=== PATIENT | male | born 1950 | race Two or more races ===

== ENCOUNTER 2020-05-30 16:26 | Inpatient (IN) | payer MEDICARE, OTHER ==
[~2020-05-30] VITALS: Ht 167.6 cm; Wt 71.7 kg
[2020-05-30] MEDS ORDERED: LORA-259 PO (17:02)
[2020-05-30] MEDS ORDERED: NICO-780 TP (17:02)
[2020-05-30] MEDS ORDERED: MULT-594 PO (17:02)
[2020-05-30] MEDS ORDERED: THIA100T13 PO (17:02)
[2020-05-30] MEDS ORDERED: FOLIC ACID PO (17:02)
[2020-05-30] MEDS ORDERED: QUET50TA PO (17:02)
[2020-05-30] MEDS ORDERED: ONDA4TAB11 PO (17:02)
--- NOTE | 2020-05-30 17:25 | NUR ---
Pt is medically cleared by Dr Paris to be admitted to [facility].
[2020-05-30 18:45] VITALS: BP 94/58
[2020-05-30] MEDS ORDERED: ACETAMINOPHEN 325 MG TABLET PO PRN (19:00)
[2020-05-30] MEDS ORDERED: MAGNESIUM HYDROXIDE 30 ML LIQUID UDC PO PRN (19:00)
[2020-05-30] MEDS ORDERED: MAG HYDROX/AL HYDROX/SIMETH 30 ML LIQUID UDC PO PRN (19:00)
--- NOTE | 2020-05-30 20:00 | NUR ---
Admission Note: 69 y.o. male brought to MHU from ER via wheelchair accompanied by ER staff. Pt admitted on a 5150 for DTS/DTO under the care of Dr Ferguson and Dr Flynn with a dx of Psychosis. According to the 5150, Pts elderly mother called PD reporting her son was in the front yard with a realistic looking black pellet rifle. Pt dropped the rifle and showed the officers his genitals and surrendered after several minutes. Pt demonstrated clear disregard for his safety and the safety of others, wielding guns near police officers. Pts actions could lead to a potentially fatal encounter. Pt was extremely disoriented and could not congruently express himself. Upon face to face evaluation, Pt is A+Ox3, and states he is here "I pulled my pellet gun on the 2 Orientals in my bedroom". Pt has a fixed delusion that there were strange unknown men in his bedroom and further stated, I am in the right, I was protecting myself. Denies wanting to hurt anyone specific, and has no plan. Pt is noted to be manic, hyperverbal, and tangential. Affect is elevated, speech is rapid and pressured. Mood is labile, thought process is scattered. Presents with poor insight and impaired judgment. Pt is unable verbalize a viable or realistic plan for safety or self care. Denies SI/HI and verbally contracts for safety inside the hospital, unreliable for safety outside the hospital due to impulsivity and unpredictability. Denies AH/VH, but appears internally preoccupied. Pt was cooperative with admission process and signed all paperwork. Pt admits access to firearms in his home but states, they are just pellet guns. Denies any current or prior substance abuse issues, but UDS at prior hospital was positive for meth. Skin assessment completed-c/d/i. Medical h/o hepatic CA, hepatitis C, chronic pain, bipolar disorder, anxiety, and psychosis. Pt is a current smoker, reports 1 pack of cigarettes per day x 35 years, nicotine patch ordered. Dr Ferguson and Dr Flynn notified of admission, meds reconciled, orders received. Pt belongings inventoried, contraband placed in unit locker. VS stable, Pt denied any pain or discomfort on admission. Meal provided and consumed 100%. Pt gave permission to contact his sister Jolene, who was notified of his admission at 2130. Flu and PNA vaccines ordered. Patient Rights handbook and Advisement given, rights and unit rules explained to Pt, who needs reinforcement d/t mental status. Pt oriented to the unit, the phone, the restrooms, and his room. Q 15 minute safety checks initiated.
[2020-05-30 20:05] VITALS: BP 101/56
[2020-05-30] MEDS: TEMAZEPAM 7.5 MG CAPSULE PO PRN (21:32)
--- NOTE | 2020-05-31 06:47 | NUR ---
PT SLEPT 7.30HOURS. PT IN NO ACUTE DISTRESS NOTED. PT COOPERATIVE WITH CARE. PT INSISTING TO HAVE ALBUTEROL AND TRAZADONE MEDICATION LAST NIGHT. PRESCRIBED MEDICATION GIVEN AND PT TOLERATED IT WELL. AT 2131H TYLENOL GIVEN PRN AND SLEEPING MEDICATION PRN GIVEN. PT STATING HE HAS GENERALIZED PAIN AND WANTS TO SLEEP. PT TOLERATED IT WELL. PT COUGHING. SAFETY AND COMFORT PROVIDED. WILL ENDORSE TO INCOMING NURSE FOR CONTINUITY OF CARE.
[2020-05-31 07:23] LABS: BASOPHILS # (AUTO) 0.1 K/uL (0.0-8.0); BASOPHILS % (AUTO) 0.6 % (0.0-2.0); EOSINOPHILS # (AUTO) 0.5 K/uL (0.0-0.7); HEMATOCRIT 39.1 % (36.7-47.1); HEMOGLOBIN 13.3 g/dL (12.5-16.3); LYMPHOCYTES % (AUTO) 23.8 % (20.5-51.5); MEAN CORPUSCULAR HEMOGLOBIN 33.3 uug (23.8-33.4); MEAN CORPUSCULAR HGB CONC 34 g/dL (32.5-36.3); MONOCYTES # (AUTO) 1.3 K/uL (2.0-10.0); MONOCYTES % (AUTO) 15.1 % (0.0-11.0); NEUTROPHILS # (AUTO) 4.6 K/uL (1.8-8.9); NEUTROPHILS % (AUTO) 54.5 % (38.5-71.5); PLATELET COUNT (AUTO) 206 K/uL (152-348); RED BLOOD CELL COUNT(AUTO) 3.99 MIL/uL (4.06-5.63); WHITE BLOOD COUNT (AUTO) 8.4 K/uL (3.6-10.2)
[2020-05-31 07:30] VITALS: BP 137/65
[2020-05-31 08:02] LABS: BILIRUBIN,TOTAL 0.5 mg/dL (0.2-1.0); CREATININE 1.2 mg/dL (0.6-1.3); MAGNESIUM 2.1 mg/dL (1.8-2.4); PHOSPHOROUS 2.9 mg/dL (2.5-4.9); POTASSIUM 5.1 mmol/L (3.5-5.1); THYROID STIMULATING HORMONE 1.025 mIU/mL (0.358-3.740); TOTAL PROTEIN, SERUM 6.5 g/dL (6.4-8.2)
[2020-05-31] MEDS: THIAMINE HCL 100 MG TABLET PO SCH (08:17)
[2020-05-31] MEDS: NICOTINE 21 MG/24HR PATCH TD SCH (08:17)
[2020-05-31] MEDS: MULTIVITAMINS,THERAPEUTIC TABLET PO SCH (08:17)
[2020-05-31] MEDS: FOLIC ACID 1 MG TABLET PO SCH (08:17)
[2020-05-31] MEDS ORDERED: INFLUENZA VACCINE 2020-2021 0.5 ML DISP.SYRIN IM ONE (09:00)
[2020-05-31] MEDS ORDERED: PNEUMOCOCCAL 23-VAL P-SAC VAC 0.5 ML VIAL IM ONE (09:00)
--- NOTE | 2020-05-31 09:08 | NUR ---
fLU AND Pneumovax vaccine offered , patient refused he state that " i rather go to [facility] to get it".
[2020-05-31 16:30] VITALS: BP 137/73
--- NOTE | 2020-05-31 16:30 | NUR ---
Initial Discharge Plan: Pt currently resides at his mother's home located at [address] [place] [address]. Per pt, he would like to return. RHODA will work with the pt and the MD regarding appropriate discharge planning. SW will form a safe and proper discharge.
[2020-05-31 19:57] VITALS: BP 150/72
[2020-05-31 20:07] LABS: PLATELET COUNT,MANUAL 206 K/uL (150-450)
[2020-05-31 20:14] LABS: EOSINOPHILS % (MANUAL) 7 % (0-8); LYMPHOCYTES % (MANUAL) 26 % (20-40); MONOCYTES % (MANUAL) 10 % (2-10); NEUTROPHILS % (MANUAL) 57 % (42-75)
[2020-05-31] MEDS: TEMAZEPAM 7.5 MG CAPSULE PO PRN (21:32)
[2020-06-01] MEDS: LORAZEPAM 1 MG TABLET PO PRN (00:56)
[2020-06-01 07:30] VITALS: BP 106/76
[2020-06-01] MEDS: NICOTINE 21 MG/24HR PATCH TD SCH (08:27)
[2020-06-01] MEDS: MULTIVITAMINS,THERAPEUTIC TABLET PO SCH (08:27)
[2020-06-01] MEDS: OLANZAPINE 5 MG TABLET PO SCH ×2 (08:27→16:11)
[2020-06-01] MEDS: THIAMINE HCL 100 MG TABLET PO SCH (08:27)
[2020-06-01] MEDS: FOLIC ACID 1 MG TABLET PO SCH (08:27)
--- NOTE | 2020-06-01 10:36 | NUR ---
Firearms Report: Annealing Oven Operator completed and submitted a [employer] firearms report for 5150 DTO/DTS certification. A copy of report has been placed in patient chart.
--- NOTE | 2020-06-01 10:36 | NUR ---
Family Contact: SW called the pts mother, Violet ([phone]), and was unable to make contact so the SW left a message on her voicemail asking to speak to her regarding the pts treatment.
--- NOTE | 2020-06-01 10:38 | NUR ---
Family Contact: SW called the pts sister, Jolene ([phone]), and was unable to make contact so the SW left a message on her voicemail asking to speak to her regarding the pts treatment.
--- NOTE | 2020-06-01 10:38 | NUR ---
Drug and Alcohol Counselor Contact: SW called Isabel De La Paz ([phone]), pts drug and alcohol counselor, who stated that she was busy at the moment and that she will call the SW back later.
--- NOTE | 2020-06-01 10:39 | NUR ---
Police Department Contact: SW called the [place] [employer] [facility] ([phone]) and left a message asking for an Officer to give a call back so that the SW can ensure that the guns were taken from the pts possession.
--- NOTE | 2020-06-01 11:09 | NUR ---
Substance Abuse Intervention: RHODA conducted a substance abuse intervention with the pt due to his recent methamphetamine use.
--- NOTE | 2020-06-01 11:10 | NUR ---
Police Department Contact: Officer Machadorohan Robbins #[id number] from the [place] [employer] [facility] ([phone]) called the SW and stated that the guns have been removed from the pts ownership.
--- NOTE | 2020-06-01 11:50 | NUR ---
Family Contact: Pts sister, Jolene ([phone]), called the SW back and stated that the pt should not have been admitted to [facility] as he is a [place] and is always admitted to the [facility]. Pts sister expressed her concern with the pt getting billed and not being able to receive his medications. SW stated that she will follow up with her once there is a plan to either transfer the pt or keep him on the unit.
[2020-06-01] MEDS: HYDROCODONE/APAP 5-325MG TABLET PO PRN (15:07)
[2020-06-01 16:06] VITALS: BP 139/74
--- NOTE | 2020-06-01 17:39 | NUR ---
Received The patient is a 69-year-old male dressed in a hospital gown, lying in bed, in no acute physical distress. The patient is alert, would not respond to questions regarding orientation. The patient is calm cooperative, patient states that he has Cancer and currently receiving chemotherapy in [facility], Patient also verbalizes that he needs pain Medication for his cancer pain, and tylenol wont work , called and spoke with BRUSHER WARP Alison, orders made and carried out, verified information with SW regarding [facility] , patient currently has chemotherapy and the next dose on June, patients need, monitored [id number] for safety , will continue monitor:
[2020-06-01 20:00] VITALS: BP 123/68
[2020-06-02] MEDS: HYDROCODONE/APAP 5-325MG TABLET PO PRN ×2 (05:28→16:57)
[2020-06-02 07:30] VITALS: BP 126/83
[2020-06-02] MEDS: OLANZAPINE 5 MG TABLET PO SCH ×2 (08:55→16:49)
[2020-06-02] MEDS: THIAMINE HCL 100 MG TABLET PO SCH (08:55)
[2020-06-02] MEDS: MULTIVITAMINS,THERAPEUTIC TABLET PO SCH (08:55)
[2020-06-02] MEDS: FOLIC ACID 1 MG TABLET PO SCH (08:55)
[2020-06-02] MEDS: NICOTINE 21 MG/24HR PATCH TD SCH (08:56)
--- NOTE | 2020-06-02 14:42 | NUR ---
Family Contact: Pts sister, Jolene ([phone]), called the SW and stated that she wanted the [facility] the [facility]. SW transferred the call to her specialty manufacturing supervisor, Lin Madrigal LCSW.
[2020-06-02 16:00] VITALS: BP 125/78
--- NOTE | 2020-06-02 17:08 | NUR ---
Clinical Social Work Note Spoke with sister, Jolene, at length as she had questions about why patient was not in [facility]. Assured her that we would be willing to transfer her brother if [facility] had a bed and accepting doctor. She said she knows they are very short on beds. She also wanted reassurance that we were aware her brother had a history of liver cancer. Sydnee, assigned social work associate also reinforced with sister that we were aware of patent's medical and psychiatric history. She expressed frustration about his substance abuse and his refusal to accept help. They do not want him to return home to his elderly mother. Sydnee was notified and will try to address alternative placement with patient.
[2020-06-02 20:00] VITALS: BP 139/88
[2020-06-03 07:30] VITALS: BP 143/77
[2020-06-03] MEDS: NICOTINE 21 MG/24HR PATCH TD SCH (08:06)
[2020-06-03] MEDS: MULTIVITAMINS,THERAPEUTIC TABLET PO SCH (08:06)
[2020-06-03] MEDS: FOLIC ACID 1 MG TABLET PO SCH (08:06)
[2020-06-03] MEDS: THIAMINE HCL 100 MG TABLET PO SCH (08:06)
[2020-06-03] MEDS: OLANZAPINE 5 MG TABLET PO SCH ×2 (08:06→16:00)
--- NOTE | 2020-06-03 10:04 | NUR ---
PC Hearing Note: Pts 5250 hold was upheld for grave disability. Copy was placed in the chart.
--- NOTE | 2020-06-03 10:05 | NUR ---
PC Notification/Family Contact: Pts sister, Jolene ([phone]), called the SW and the SW informed her that the pt had his probable cause hearing and that the court did not decide to release the pt. She stated that she was grateful for that as she feels that he needs more time.
--- NOTE | 2020-06-03 12:34 | NUR ---
SNF Referral: SW faxed a referral to the following two SNFs: [facility] with attn to Jared: [phone] [facility] with attn to Savita to the fax number: [phone].
[2020-06-03 15:07] VITALS: BP 135/78
[2020-06-03] MEDS: HYDROCODONE/APAP 5-325MG TABLET PO PRN (19:59)
[2020-06-03 20:23] VITALS: BP 113/76
[2020-06-03] MEDS: TEMAZEPAM 7.5 MG CAPSULE PO PRN (22:10)
[2020-06-04] MEDS: LORAZEPAM 1 MG TABLET PO PRN (05:07)
--- NOTE | 2020-06-04 05:37 | NUR ---
Patient slept 7.00 hours last night and is up early. Patient stated he felt "anxious" and was medicated with a PRN. No issues during the night. Continuing to monitor for safety.
[2020-06-04 07:30] VITALS: BP 130/79
[2020-06-04] MEDS: MULTIVITAMINS,THERAPEUTIC TABLET PO SCH (08:17)
[2020-06-04] MEDS: OLANZAPINE 5 MG TABLET PO SCH ×2 (08:17→16:20)
[2020-06-04] MEDS: THIAMINE HCL 100 MG TABLET PO SCH (08:17)
[2020-06-04] MEDS: NICOTINE 21 MG/24HR PATCH TD SCH (08:17)
[2020-06-04] MEDS: FOLIC ACID 1 MG TABLET PO SCH (08:17)
--- NOTE | 2020-06-04 12:22 | NUR ---
PT IS CALM AND COOPERATIVE. COMPLIANT WITH MEDICATIONS AND CARE. DENIES SI.
[2020-06-04 16:00] VITALS: BP 118/88
[2020-06-04] MEDS: HYDROCODONE/APAP 5-325MG TABLET PO PRN (18:14)
[2020-06-04 20:05] VITALS: BP 120/73
[2020-06-04] MEDS: TRAZODONE 50 MG TABLET PO SCH (20:22)
--- NOTE | 2020-06-05 05:44 | NUR ---
Received patient in his room last night, awake and alert asking for "Trazodone". Forming Yardage Control Operator and patient engaged in a meaningful conversation about post hospital plans for the patient. Patient denied, SI and HI and PM medications given with a snack. Patient slept on and off for 7.30 hours. No issues noted, continuing to monitor for safety.
[2020-06-05] MEDS: HYDROCODONE/APAP 5-325MG TABLET PO PRN ×2 (06:59→15:20)
[2020-06-05] MEDS: NICOTINE 21 MG/24HR PATCH TD SCH (08:14)
[2020-06-05] MEDS: THIAMINE HCL 100 MG TABLET PO SCH (08:14)
[2020-06-05] MEDS: FOLIC ACID 1 MG TABLET PO SCH (08:14)
[2020-06-05] MEDS: MULTIVITAMINS,THERAPEUTIC TABLET PO SCH (08:14)
[2020-06-05] MEDS: OLANZAPINE 5 MG TABLET PO SCH ×2 (08:14→16:16)
[2020-06-05 11:19] VITALS: BP 126/79
[2020-06-05 16:08] VITALS: BP 153/79
[2020-06-05 19:59] VITALS: BP 136/74
[2020-06-05] MEDS: TRAZODONE 50 MG TABLET PO SCH (20:11)
[2020-06-06] MEDS: HYDROCODONE/APAP 5-325MG TABLET PO PRN ×3 (01:39→16:25)
[2020-06-06 07:30] VITALS: BP 124/62
[2020-06-06] MEDS: THIAMINE HCL 100 MG TABLET PO SCH (08:17)
[2020-06-06] MEDS: OLANZAPINE 5 MG TABLET PO SCH ×2 (08:17→16:24)
[2020-06-06] MEDS: MULTIVITAMINS,THERAPEUTIC TABLET PO SCH (08:18)
[2020-06-06] MEDS: FOLIC ACID 1 MG TABLET PO SCH (08:18)
[2020-06-06] MEDS: NICOTINE 21 MG/24HR PATCH TD SCH (08:19)
--- NOTE | 2020-06-06 14:48 | NUR ---
[facility] Collar Packer: This SW received a phone call from Christine from [place] ([phone]) ext. [phone] case supervisor who stated will help arrange outpatient appointments with doctors.
[2020-06-06 15:06] VITALS: BP 133/86
[2020-06-06 19:45] VITALS: BP 113/69
[2020-06-06] MEDS: TRAZODONE 50 MG TABLET PO SCH (20:20)
--- NOTE | 2020-06-07 06:55 | NUR ---
GPS: Pt.slept for 7.45 minutes. No escalation of behavior noted. No plan to hurt self/others verbalized. Re-directed prn. Safe environment provided.
[2020-06-07 07:30] VITALS: BP 140/72
[2020-06-07] MEDS: FOLIC ACID 1 MG TABLET PO SCH (08:24)
[2020-06-07] MEDS: NICOTINE 21 MG/24HR PATCH TD SCH (08:24)
[2020-06-07] MEDS: THIAMINE HCL 100 MG TABLET PO SCH (08:24)
[2020-06-07] MEDS: OLANZAPINE 5 MG TABLET PO SCH ×2 (08:24→17:49)
[2020-06-07] MEDS: MULTIVITAMINS,THERAPEUTIC TABLET PO SCH (08:24)
[2020-06-07] MEDS: HYDROCODONE/APAP 5-325MG TABLET PO PRN ×2 (08:31→17:50)
--- NOTE | 2020-06-07 08:53 | NUR ---
SNF Contact: This commercial insurance underwriter received a phone call from [employer] ([phone]) who stated pt is accepted to [facility].
--- NOTE | 2020-06-07 09:30 | NUR ---
Family Contact: This headline writer spoke with pt's sister, Jolene ([phone]) and stated pt is accepted at [facility]. She was agreeable with SNF.
[2020-06-07 16:27] VITALS: BP 132/77
[2020-06-07 19:45] VITALS: BP 138/82
[2020-06-07] MEDS: TRAZODONE 50 MG TABLET PO SCH (20:24)
[2020-06-08 07:30] VITALS: BP 109/86
[2020-06-08] MEDS: HYDROCODONE/APAP 5-325MG TABLET PO PRN ×2 (08:04→16:04)
[2020-06-08] MEDS: FOLIC ACID 1 MG TABLET PO SCH (08:04)
[2020-06-08] MEDS: THIAMINE HCL 100 MG TABLET PO SCH (08:04)
[2020-06-08] MEDS: NICOTINE 21 MG/24HR PATCH TD SCH (08:05)
[2020-06-08] MEDS: MULTIVITAMINS,THERAPEUTIC TABLET PO SCH (08:05)
[2020-06-08] MEDS: OLANZAPINE 5 MG TABLET PO SCH ×2 (08:05→16:04)
[2020-06-08 16:00] VITALS: BP 133/75
--- NOTE | 2020-06-08 18:37 | NUR ---
RECEIVED PATIENT AOX4, PATIENT CALM COOPERATIVE, SEEN WALKING IN HALLWAY, PATIENT VERBALIZES THAT HIS PAIN AND ASKED FOR NORCO , PRN MEDICATION WAS GIVEN ORDERED, PATIENT DENIES SI AND SI, MONITORED [id number] FOR SAFETY , NO SIGN OF ANY DISTRESS AT THIS TIME
[2020-06-08 20:00] VITALS: BP 132/70
[2020-06-08] MEDS: TRAZODONE 50 MG TABLET PO SCH (20:21)
--- NOTE | 2020-06-09 06:37 | NUR ---
Patient slept for approx 8.45 hrs through the night. He is noted pleasant at this time. will continue to monitor.
[2020-06-09 07:30] VITALS: BP 135/74
[2020-06-09] MEDS: NICOTINE 21 MG/24HR PATCH TD SCH (08:15)
[2020-06-09] MEDS: MULTIVITAMINS,THERAPEUTIC TABLET PO SCH (08:15)
[2020-06-09] MEDS: FOLIC ACID 1 MG TABLET PO SCH (08:15)
[2020-06-09] MEDS: OLANZAPINE 5 MG TABLET PO SCH ×2 (08:16→16:10)
[2020-06-09] MEDS: THIAMINE HCL 100 MG TABLET PO SCH (08:19)
[2020-06-09] MEDS: HYDROCODONE/APAP 5-325MG TABLET PO PRN ×2 (08:29→14:44)
--- NOTE | 2020-06-09 11:47 | NUR ---
Gps/python architect- Attends group therapy, compliant with his routine medications, complained of abdominal pain, relieved by norco 1 tab, po.
--- NOTE | 2020-06-09 14:48 | NUR ---
Gps/Qa Analyst- Toileted, voided 200 ml of blood tinge urine, specimen obtained, and sent to lab. per req. to put regular clothes on him she brought yesterday for the patient. Addendum: 06/09/20 at 1450 by WILSON HEWITT LVN error, charted on a wrong patient
[2020-06-09 16:40] VITALS: BP 142/81
[2020-06-09] MEDS: TRAZODONE 50 MG TABLET PO SCH (20:17)
[2020-06-09 22:23] VITALS: BP 124/80
--- NOTE | 2020-06-10 06:31 | NUR ---
GPS/Rn - Patient rested comfortable during shift. No behavior or c/o abnormal. Cooperative with care and medications. Slept well during night.
[2020-06-10] MEDS: HYDROCODONE/APAP 5-325MG TABLET PO PRN (06:54)
[2020-06-10 07:30] VITALS: BP 138/71
[2020-06-10] MEDS: THIAMINE HCL 100 MG TABLET PO SCH (08:29)
[2020-06-10] MEDS: OLANZAPINE 5 MG TABLET PO SCH ×2 (08:29→17:12)
[2020-06-10] MEDS: NICOTINE 21 MG/24HR PATCH TD SCH (08:30)
[2020-06-10] MEDS: FOLIC ACID 1 MG TABLET PO SCH (08:30)
[2020-06-10] MEDS: MULTIVITAMINS,THERAPEUTIC TABLET PO SCH (08:30)
--- NOTE | 2020-06-10 08:49 | NUR ---
[facility] Misdraw Hand: Patients case packer and sealer Christine from [place] ([phone]) ext. [phone] is also aware of patients discharge plan to [facility].
--- NOTE | 2020-06-10 10:26 | NUR ---
Family Contact: This abstract writer spoke with pt's sister, Jolene ([phone]) and stated pt will be discharged Wednesday 06/13 to [facility] and she was agreeable with this.
--- NOTE | 2020-06-10 13:00 | NUR ---
[facility] Contact: RHODA received a call from Jenna from [facility] Case Assessment Management Program requesting information regarding the patient's discharge plan. This SW informed of the patient's discharge plan to [facility] on Saturday. Jenna was pleased with this plan.
[2020-06-10 16:00] VITALS: BP 144/86
[2020-06-10 20:00] VITALS: BP 111/75
[2020-06-10] MEDS: TRAZODONE 50 MG TABLET PO SCH (20:14)
[2020-06-11 07:30] VITALS: BP 144/75
[2020-06-11] MEDS: NICOTINE 21 MG/24HR PATCH TD SCH (09:01)
[2020-06-11] MEDS: FOLIC ACID 1 MG TABLET PO SCH (09:01)
[2020-06-11] MEDS: MULTIVITAMINS,THERAPEUTIC TABLET PO SCH (09:01)
[2020-06-11] MEDS: THIAMINE HCL 100 MG TABLET PO SCH (09:01)
[2020-06-11] MEDS: OLANZAPINE 5 MG TABLET PO SCH ×2 (09:01→16:51)
[2020-06-11 15:36] VITALS: BP 128/75
[2020-06-11] MEDS: HYDROCODONE/APAP 5-325MG TABLET PO PRN (16:51)
[2020-06-11 20:00] VITALS: BP 123/73
[2020-06-11] MEDS: TRAZODONE 50 MG TABLET PO SCH (20:11)
--- NOTE | 2020-06-12 05:47 | NUR ---
PATIENT ALERT ORIENTED, NO COMPLAIN OF PAIN, PATIENT COOPERATIVE WITH CARE, AND TOOK HIS MEDICATIONS, NO BEHAVIORAL PROBLEM NOTED AT THIS TIME, SLEPT FOR 9 HRS.
[2020-06-12] MEDS: HYDROCODONE/APAP 5-325MG TABLET PO PRN ×2 (06:55→13:55)
[2020-06-12 07:30] VITALS: BP 127/69
[2020-06-12] MEDS: NICOTINE 21 MG/24HR PATCH TD SCH (08:04)
[2020-06-12] MEDS: FOLIC ACID 1 MG TABLET PO SCH (08:05)
[2020-06-12] MEDS: MULTIVITAMINS,THERAPEUTIC TABLET PO SCH (08:05)
[2020-06-12] MEDS: OLANZAPINE 5 MG TABLET PO SCH ×2 (08:05→16:00)
[2020-06-12] MEDS: THIAMINE HCL 100 MG TABLET PO SCH (08:05)
[2020-06-12 16:00] VITALS: BP 133/79
[2020-06-12 20:02] VITALS: BP 142/68
[2020-06-12] MEDS: TRAZODONE 50 MG TABLET PO SCH (20:15)
--- NOTE | 2020-06-12 23:30 | NUR ---
Received patient in bed, med compliant, alert oriented x 3, no behavioral issue at this time. Patient is focused on going home. Patient will remain in a psych facility for further evaluation and treatment.
[2020-06-13] MEDS: HYDROCODONE/APAP 5-325MG TABLET PO PRN (06:47)
[2020-06-13 07:30] VITALS: BP 122/75
[2020-06-13] MEDS: FOLIC ACID 1 MG TABLET PO SCH (08:00)
[2020-06-13] MEDS: NICOTINE 21 MG/24HR PATCH TD SCH (08:00)
[2020-06-13] MEDS: MULTIVITAMINS,THERAPEUTIC TABLET PO SCH (08:00)
[2020-06-13] MEDS: THIAMINE HCL 100 MG TABLET PO SCH (08:00)
[2020-06-13] MEDS: OLANZAPINE 5 MG TABLET PO SCH (08:00)
--- NOTE | 2020-06-13 08:47 | NUR ---
Discharge Note: Patient will be discharged to [facility], [place] [address] ([phone]) via Ambulance transportation at 1PM. Tire Service Technician spoke with Jared, Greens Or Grounds Superintendent at [facility] ([phone]) who confirmed that patient will be accepted at their facility today. Patient is alert and oriented x2. Patient is not able to plan for self-care at this time but is willing to accept care provided for him at the facility. Patient denies suicidal or homicidal ideation. Patient is aware and agreeable with discharge plans. Patient presents with appropriate mood and congruent affect. Patient will follow-up with Psychiatrist Dr. Ferguson and Rn Diabetes Dr. Lund at [facility]. Patients sisterJolene ([phone]) is aware and agreeable with discharge plan. Patients pillowcase turner Christine from [place] ([phone]) ext. [phone] is also aware of patients discharge plan. Patient was provided with a brief substance abuse intervention and referred to the following substance abuse programs: [facility] Substance Abuse Self-helpline ([phone]); [facility] [address] [place] [address] ([phone]); [facility] [address] [place] [address] ([phone]); [facility] ([phone]); [facility] ([phone]); [facility] ([phone]); [facility] ([phone]).
--- NOTE | 2020-06-13 14:31 | NUR ---
Patient w discharged to longterm facility, [facility] via Ambulance transportation at 1430pm,patient is A/O x4 ,vital sign stable.all personal belonging returned to patient .spoke with lashaun HERNANDEZ for report.
== END 2020-06-13 14:30 | DRG 885 ==
LOC: ER 16:30 → GPS 18:00
PROVIDERS: ADMIT Psychiatry & Neurology Psychiatry; ATTEND Student in an Organized Health Care Education/Training Program
DX: F29 Unspecified psychosis not due to a substance or known physiological condition (principal); B18.2 Chronic viral hepatitis C; E44.1 Mild protein-calorie malnutrition; E86.0 Dehydration; F20.0 Paranoid schizophrenia; Z68.25 Body mass index [BMI] 25.0-25.9, adult; Z85.05 Personal history of malignant neoplasm of liver; Z87.891 Personal history of nicotine dependence; E11.9 Type 2 diabetes mellitus without complications; F15.11 Other stimulant abuse, in remission; Z79.84 Long term (current) use of oral hypoglycemic drugs
CPT/HCPCS: 36415; 70030-TC; 71045; 83735; 84100; 84443; 85025; 90732; A4663